=== PATIENT | male | born 1945 ===

== ENCOUNTER 2021-02-16 20:54 | Inpatient (IN) ==
[2021-02-16 22:09] LABS: Hematocrit 37 % (42-52); Hemoglobin 13.1 g/dL (14.0-18.0); Mean Corpuscular HGB Conc 35 g/dL (31-36); Mean Corpuscular Hemoglobin 33 pg (27-31); Mean Corpuscular Volume 93 fL (80-94); Mean Platelet Volume 7.5 fL (7.4-10.4); Platelet Count 341 10^3/uL (150-450); Red Blood Count 4.01 10^6 /uL (4.18-5.48); Red Cell Distribution Width 13 % (10-15); White Blood Count 8.9 10^3/uL (3.5-10.8)
[2021-02-16 22:31] LABS: Albumin 3.3 g/dL (3.2-5.2); Albumin/Globulin Ratio 0.9 (1-3); Calcium 8.4 mg/dL (8.6-10.3); Globulin 3.6 g/dL (2-4); Magnesium 2.4 mg/dL (1.9-2.7); Potassium 3.9 mmol/L (3.5-5.0); Total Bilirubin 0.8 mg/dL (0.2-1.0); Total Protein 6.9 g/dL (6.4-8.9); eGFR CKD-EPI 53.1 (>60)
[2021-02-16 22:50] LABS: ABS Lymphocytes 0.2 10^3/ul (1.0-4.8); ABS Monocytes 0.2 10^3/ul (0-0.8); ABS Neutrophils 8.5 10^3/ul (1.5-7.7); Lymphocyte % 2.7 %; Nucleated Red Blood Cells % 0.1
[2021-02-16] MEDS: Enoxaparin 40 MG/0.4 ML SYR SUBCUT SCH (22:56)
[2021-02-16] MEDS ORDERED: Azithromycin 500 mg/250 ml NS 500 MG/250 ML BAG IVPB ONE (23:08)
[2021-02-16] MEDS ORDERED: Dextrose 50% Syringe 50 ml 25 GM/50 ML SYRINGE IV PUSH PRN (23:10)
[2021-02-17] MEDS ORDERED: Remdesivir 100 mg Vial 200 MG in NS 0.9% 250 ml 210 ML IV ONE (00:21)
[2021-02-17 01:02] LABS: INR 1.21 (0.86-1.15)
[2021-02-17] MEDS: cefTRIAXone 1 gm/50 mL NS BAG 1 GM/50 ML BAG IVPB SCH ×2 (01:02→20:22)
[2021-02-17 01:22] LABS: Albumin 3.1 g/dL (3.2-5.2); Albumin/Globulin Ratio 0.9 (1-3); Calcium 8.4 mg/dL (8.6-10.3); Globulin 3.3 g/dL (2-4); Potassium 3.8 mmol/L (3.5-5.0); Total Bilirubin 0.6 mg/dL (0.2-1.0); Total Protein 6.4 g/dL (6.4-8.9); eGFR CKD-EPI 58.2 (>60)
[2021-02-17 04:52] LABS: ABS Lymphocytes 0.5 10^3/ul (1.0-4.8); ABS Monocytes 0.2 10^3/ul (0-0.8); ABS Neutrophils 7.9 10^3/ul (1.5-7.7); Hematocrit 36 % (42-52); Hemoglobin 12.4 g/dL (14.0-18.0); Lymphocyte % 5.4 %; Mean Corpuscular HGB Conc 35 g/dL (31-36); Mean Corpuscular Hemoglobin 32 pg (27-31); Mean Corpuscular Volume 94 fL (80-94); Mean Platelet Volume 7.8 fL (7.4-10.4); Platelet Count 365 10^3/uL (150-450); Red Blood Count 3.84 10^6 /uL (4.18-5.48); Red Cell Distribution Width 13 % (10-15); White Blood Count 8.6 10^3/uL (3.5-10.8)
[2021-02-17 05:06] LABS: Calcium 7.9 mg/dL (8.6-10.3); eGFR CKD-EPI 66.9 (>60)
[2021-02-17 08:33] LABS: Magnesium 2.3 mg/dL (1.9-2.7)
[2021-02-17] MEDS: Enoxaparin 40 MG/0.4 ML SYR SUBCUT SCH (20:22)
[2021-02-17] MEDS ORDERED: Remdesivir 100 mg Q24H MAINTENANCE DOSING IV SCH (21:00)
[2021-02-18 05:25] LABS: ABS Lymphocytes 1.1 10^3/ul (1.0-4.8); ABS Monocytes 0.6 10^3/ul (0-0.8); ABS Neutrophils 12.8 10^3/ul (1.5-7.7); Hematocrit 38 % (42-52); Lymphocyte % 7.6 %; Mean Corpuscular HGB Conc 34 g/dL (31-36); Mean Corpuscular Hemoglobin 32 pg (27-31); Mean Corpuscular Volume 94 fL (80-94); Mean Platelet Volume 7.7 fL (7.4-10.4); Nucleated Red Blood Cells % 0.1; Platelet Count 355 10^3/uL (150-450); Red Blood Count 4.02 10^6 /uL (4.18-5.48); Red Cell Distribution Width 13 % (10-15); White Blood Count 14.5 10^3/uL (3.5-10.8)
[2021-02-18 05:33] LABS: INR 1.29 (0.86-1.15)
[2021-02-18 05:42] LABS: Albumin 3.1 g/dL (3.2-5.2); Albumin/Globulin Ratio 0.9 (1-3); Calcium 8.4 mg/dL (8.6-10.3); Globulin 3.4 g/dL (2-4); Magnesium 2.2 mg/dL (1.9-2.7); Potassium 3.8 mmol/L (3.5-5.0); Total Bilirubin 0.6 mg/dL (0.2-1.0); Total Protein 6.5 g/dL (6.4-8.9); eGFR CKD-EPI 89.8 (>60)
[2021-02-18] MEDS ORDERED: Potassium Chlor 20 meq TAB.ER PO ONE (07:19)
[2021-02-18] MEDS ORDERED: Furosemide 40 mg/4 ml IV VIAL IV SLOW PU ONE (10:29)
[2021-02-18 14:55] LABS: Ferritin 922.5 ng/mL (24-336)
[2021-02-18] MEDS: cefTRIAXone 1 gm/50 mL NS BAG 1 GM/50 ML BAG IVPB SCH (20:04)
[2021-02-18] MEDS: Enoxaparin 40 MG/0.4 ML SYR SUBCUT SCH (20:10)
[2021-02-19 06:27] LABS: ABS Lymphocytes 0.7 10^3/ul (1.0-4.8); ABS Monocytes 0.4 10^3/ul (0-0.8); Eosinophil % 0.2 %; Hematocrit 41 % (42-52); Hemoglobin 14.2 g/dL (14.0-18.0); Lymphocyte % 6.6 %; Mean Corpuscular HGB Conc 35 g/dL (31-36); Mean Corpuscular Hemoglobin 33 pg (27-31); Mean Corpuscular Volume 94 fL (80-94); Mean Platelet Volume 7.5 fL (7.4-10.4); Platelet Count 248 10^3/uL (150-450); Red Blood Count 4.37 10^6 /uL (4.18-5.48); Red Cell Distribution Width 13 % (10-15); White Blood Count 11.1 10^3/uL (3.5-10.8)
[2021-02-19 06:40] LABS: Albumin 3.3 g/dL (3.2-5.2); Calcium 8.3 mg/dL (8.6-10.3); Globulin 3.3 g/dL (2-4); Potassium 4.1 mmol/L (3.5-5.0); Total Bilirubin 0.8 mg/dL (0.2-1.0); Total Protein 6.6 g/dL (6.4-8.9); eGFR CKD-EPI 90.8 (>60)
[2021-02-19] MEDS ORDERED: Furosemide 40 mg/4 ml IV VIAL IV SLOW PU ONE (11:37)
[2021-02-19] MEDS: cefTRIAXone 1 gm/50 mL NS BAG 1 GM/50 ML BAG IVPB SCH (22:05)
[2021-02-19] MEDS: methylPREDNISolone SOD 40 mg/ml 1 ml VIAL IV SCH (22:05)
[2021-02-19] MEDS: Enoxaparin 40 MG/0.4 ML SYR SUBCUT SCH (22:05)
[2021-02-20 06:14] LABS: ABS Lymphocytes 0.6 10^3/ul (1.0-4.8); ABS Monocytes 0.2 10^3/ul (0-0.8); ABS Neutrophils 11.3 10^3/ul (1.5-7.7); Hematocrit 40 % (42-52); Lymphocyte % 4.6 %; Mean Corpuscular HGB Conc 35 g/dL (31-36); Mean Corpuscular Hemoglobin 32 pg (27-31); Mean Corpuscular Volume 94 fL (80-94); Mean Platelet Volume 7.7 fL (7.4-10.4); Platelet Count 239 10^3/uL (150-450); Red Blood Count 4.32 10^6 /uL (4.18-5.48); Red Cell Distribution Width 13 % (10-15); White Blood Count 12.1 10^3/uL (3.5-10.8)
[2021-02-20 06:43] LABS: Albumin 3.2 g/dL (3.2-5.2); Calcium 8.4 mg/dL (8.6-10.3); Globulin 3.2 g/dL (2-4); Magnesium 2.1 mg/dL (1.9-2.7); Phosphorus 4.3 mg/dL (2.5-5.0); Potassium 4.6 mmol/L (3.5-5.0); Total Bilirubin 0.8 mg/dL (0.2-1.0); Total Protein 6.4 g/dL (6.4-8.9); eGFR CKD-EPI 89.8 (>60)
[2021-02-20] MEDS: methylPREDNISolone SOD 40 mg/ml 1 ml VIAL IV SCH ×2 (09:29→21:19)
[2021-02-20] MEDS: cefTRIAXone 1 gm/50 mL NS BAG 1 GM/50 ML BAG IVPB SCH (21:18)
[2021-02-20] MEDS: Enoxaparin 40 MG/0.4 ML SYR SUBCUT SCH (21:18)
[2021-02-21 05:28] LABS: Hematocrit 43 % (42-52); Hemoglobin 14.7 g/dL (14.0-18.0); Mean Corpuscular HGB Conc 34 g/dL (31-36); Mean Corpuscular Hemoglobin 32 pg (27-31); Mean Corpuscular Volume 93 fL (80-94); Mean Platelet Volume 7.9 fL (7.4-10.4); Platelet Count 296 10^3/uL (150-450); Red Blood Count 4.61 10^6 /uL (4.18-5.48); Red Cell Distribution Width 13 % (10-15); White Blood Count 13.3 10^3/uL (3.5-10.8)
[2021-02-21 05:46] LABS: Albumin 3.2 g/dL (3.2-5.2); Albumin/Globulin Ratio 0.9 (1-3); Calcium 8.5 mg/dL (8.6-10.3); Globulin 3.5 g/dL (2-4); Magnesium 2.2 mg/dL (1.9-2.7); Phosphorus 3.6 mg/dL (2.5-5.0); Potassium 4.7 mmol/L (3.5-5.0); Total Bilirubin 0.8 mg/dL (0.2-1.0); Total Protein 6.7 g/dL (6.4-8.9); eGFR CKD-EPI 88.6 (>60)
[2021-02-21] MEDS: methylPREDNISolone SOD 40 mg/ml 1 ml VIAL IV SCH ×2 (08:44→20:15)
[2021-02-21] MEDS: cefTRIAXone 1 gm/50 mL NS BAG 1 GM/50 ML BAG IVPB SCH (20:14)
[2021-02-21] MEDS: Enoxaparin 40 MG/0.4 ML SYR SUBCUT SCH (20:15)
[2021-02-22 05:00] LABS: Hematocrit 43 % (42-52); Hemoglobin 14.6 g/dL (14.0-18.0); Mean Corpuscular HGB Conc 34 g/dL (31-36); Mean Corpuscular Hemoglobin 32 pg (27-31); Mean Corpuscular Volume 94 fL (80-94); Mean Platelet Volume 7.8 fL (7.4-10.4); Platelet Count 230 10^3/uL (150-450); Red Blood Count 4.52 10^6 /uL (4.18-5.48); Red Cell Distribution Width 13 % (10-15); White Blood Count 11.7 10^3/uL (3.5-10.8)
[2021-02-22 05:09] LABS: Albumin 3.2 g/dL (3.2-5.2); Calcium 8.4 mg/dL (8.6-10.3); Magnesium 2.3 mg/dL (1.9-2.7); Potassium 4.9 mmol/L (3.5-5.0); Total Bilirubin 0.7 mg/dL (0.2-1.0)
[2021-02-22 05:15] LABS: Albumin/Globulin Ratio 0.9 (1-3); Globulin 3.6 g/dL (2-4); Phosphorus 3.3 mg/dL (2.5-5.0); Total Protein 6.8 g/dL (6.4-8.9); eGFR CKD-EPI 91.1 (>60)
[2021-02-22] MEDS: methylPREDNISolone SOD 40 mg/ml 1 ml VIAL IV SCH ×2 (09:16→20:53)
[2021-02-22] MEDS: cefTRIAXone 1 gm/50 mL NS BAG 1 GM/50 ML BAG IVPB SCH (20:55)
[2021-02-22] MEDS: Enoxaparin 40 MG/0.4 ML SYR SUBCUT SCH (20:56)
[2021-02-23 05:41] LABS: ABS Lymphocytes 0.7 10^3/ul (1.0-4.8); ABS Monocytes 0.4 10^3/ul (0-0.8); ABS Neutrophils 9.4 10^3/ul (1.5-7.7); Eosinophil % 0.1 %; Hematocrit 41 % (42-52); Hemoglobin 14.4 g/dL (14.0-18.0); Lymphocyte % 6.6 %; Mean Corpuscular HGB Conc 35 g/dL (31-36); Mean Corpuscular Hemoglobin 33 pg (27-31); Mean Corpuscular Volume 93 fL (80-94); Platelet Count 262 10^3/uL (150-450); Red Blood Count 4.38 10^6 /uL (4.18-5.48); Red Cell Distribution Width 13 % (10-15); White Blood Count 10.5 10^3/uL (3.5-10.8)
[2021-02-23 05:56] LABS: Calcium 8.3 mg/dL (8.6-10.3); Magnesium 2.2 mg/dL (1.9-2.7); Potassium 4.8 mmol/L (3.5-5.0); eGFR CKD-EPI 91.5 (>60)
[2021-02-23] MEDS ORDERED: Senna TAB 8.6 mg TAB PO PRN (08:13)
[2021-02-23] MEDS ORDERED: Furosemide 40 mg/4 ml IV VIAL IV SLOW PU ONE (08:52)
[2021-02-23] MEDS: methylPREDNISolone SOD 40 mg/ml 1 ml VIAL IV SCH ×2 (09:07→20:21)
[2021-02-23] MEDS: Morphine 2 MG/ML SYRINGE IV PRN (10:10)
[2021-02-23] MEDS: Magnesium Hydroxide LIQ 30 ML UDC PO SCH (17:37)
[2021-02-23] MEDS: Polyethylene Glycol 3350 17 GM PACKET PO SCH (20:21)
[2021-02-23] MEDS: Enoxaparin 40 MG/0.4 ML SYR SUBCUT SCH (20:21)
[2021-02-23] MEDS ORDERED: Magnesium Hydroxide LIQ 30 ML UDC PO SCH (21:00)
[2021-02-24 05:02] LABS: Hematocrit 42 % (42-52); Hemoglobin 14.7 g/dL (14.0-18.0); Mean Corpuscular HGB Conc 35 g/dL (31-36); Mean Corpuscular Hemoglobin 33 pg (27-31); Mean Corpuscular Volume 93 fL (80-94); Mean Platelet Volume 8.1 fL (7.4-10.4); Platelet Count 273 10^3/uL (150-450); Red Blood Count 4.52 10^6 /uL (4.18-5.48); Red Cell Distribution Width 13 % (10-15); White Blood Count 10.4 10^3/uL (3.5-10.8)
[2021-02-24 05:19] LABS: Calcium 8.5 mg/dL (8.6-10.3); Magnesium 2.2 mg/dL (1.9-2.7); Phosphorus 2.3 mg/dL (2.5-5.0); Potassium 4.8 mmol/L (3.5-5.0); eGFR CKD-EPI 90.1 (>60)
[2021-02-24] MEDS ORDERED: Morphine 2 MG/ML SYRINGE ONE (07:50)
[2021-02-24] MEDS ORDERED: LORazepam 2 mg VIAL 1 ml ONE (07:57)
[2021-02-24] MEDS ORDERED: Lorazepam PYXIS KEY ONE (07:57)
[2021-02-24] MEDS ORDERED: Lorazepam PYXIS KEY PRN (07:57)
[2021-02-24] MEDS: LORazepam 2 mg VIAL 1 ml IV PUSH ONE ×2 (07:59→08:05)
[2021-02-24] MEDS ORDERED: Furosemide 40 mg/4 ml IV VIAL IV ONE (08:49)
[2021-02-24] MEDS: methylPREDNISolone SOD 40 mg/ml 1 ml VIAL IV SCH ×2 (09:44→21:17)
[2021-02-24] MEDS: Polyethylene Glycol 3350 17 GM PACKET PO SCH ×2 (10:01→21:17)
[2021-02-24] MEDS: Acetylcysteine 600mgCAP(RENAL) PO SCH ×3 (11:20→21:20)
[2021-02-24] MEDS: Magnesium Hydroxide LIQ 30 ML UDC PO SCH ×3 (11:22→21:21)
[2021-02-24] MEDS: Enoxaparin 40 MG/0.4 ML SYR SUBCUT SCH (21:19)
[2021-02-25 04:56] LABS: Hematocrit 40 % (42-52); Hemoglobin 13.9 g/dL (14.0-18.0); Mean Corpuscular HGB Conc 35 g/dL (31-36); Mean Corpuscular Hemoglobin 33 pg (27-31); Mean Corpuscular Volume 94 fL (80-94); Mean Platelet Volume 8.4 fL (7.4-10.4); Platelet Count 274 10^3/uL (150-450); Red Blood Count 4.26 10^6 /uL (4.18-5.48); Red Cell Distribution Width 13 % (10-15); White Blood Count 10.3 10^3/uL (3.5-10.8)
[2021-02-25 05:11] LABS: Calcium 8.2 mg/dL (8.6-10.3); Magnesium 2.3 mg/dL (1.9-2.7); Phosphorus 2.9 mg/dL (2.5-5.0); Potassium 4.7 mmol/L (3.5-5.0); eGFR CKD-EPI 93.7 (>60)
[2021-02-25] MEDS: Polyethylene Glycol 3350 17 GM PACKET PO SCH ×2 (08:33→21:15)
[2021-02-25] MEDS: methylPREDNISolone SOD 40 mg/ml 1 ml VIAL IV SCH ×2 (08:39→21:14)
[2021-02-25] MEDS: Acetylcysteine 600mgCAP(RENAL) PO SCH ×2 (08:39→21:15)
[2021-02-25] MEDS: Magnesium Hydroxide LIQ 30 ML UDC PO SCH ×3 (09:08→21:15)
[2021-02-25] MEDS: Morphine 2 MG/ML SYRINGE IV PRN (16:10)
[2021-02-25] MEDS: Enoxaparin 40 MG/0.4 ML SYR SUBCUT SCH (21:15)
[2021-02-26 05:35] LABS: Calcium 8.2 mg/dL (8.6-10.3); Magnesium 2.4 mg/dL (1.9-2.7); eGFR CKD-EPI 93.3 (>60)
[2021-02-26 05:54] LABS: Hematocrit 42 % (42-52); Hemoglobin 14.5 g/dL (14.0-18.0); Mean Corpuscular HGB Conc 35 g/dL (31-36); Mean Corpuscular Hemoglobin 32 pg (27-31); Mean Corpuscular Volume 93 fL (80-94); Mean Platelet Volume 8.4 fL (7.4-10.4); Platelet Count 281 10^3/uL (150-450); Red Cell Distribution Width 13 % (10-15)
[2021-02-26] MEDS: Magnesium Hydroxide LIQ 30 ML UDC PO SCH ×2 (08:14→22:06)
[2021-02-26] MEDS: methylPREDNISolone SOD 40 mg/ml 1 ml VIAL IV SCH ×2 (08:15→21:55)
[2021-02-26] MEDS: Acetylcysteine 600mgCAP(RENAL) PO SCH ×2 (08:15→21:53)
[2021-02-26] MEDS: Polyethylene Glycol 3350 17 GM PACKET PO SCH ×2 (08:38→22:06)
[2021-02-26] MEDS: Morphine 2 MG/ML SYRINGE IV PRN (08:51)
[2021-02-26] MEDS: CMC: Selenium 200 mcg TAB (NF) PO SCH (13:44)
[2021-02-26] MEDS: Enoxaparin 40 MG/0.4 ML SYR SUBCUT SCH (21:53)
[2021-02-27 04:54] LABS: Calcium 8.1 mg/dL (8.6-10.3); eGFR CKD-EPI 90.1 (>60)
[2021-02-27 05:00] LABS: Potassium 5.2 mmol/L (3.5-5.0)
[2021-02-27] MEDS ORDERED: Furosemide 40 mg/4 ml IV VIAL IV SLOW PU ONE (06:48)
[2021-02-27] MEDS: CMC: Selenium 200 mcg TAB (NF) PO SCH (08:05)
[2021-02-27] MEDS: methylPREDNISolone SOD 40 mg/ml 1 ml VIAL IV SCH ×2 (08:05→21:59)
[2021-02-27] MEDS: Acetylcysteine 600mgCAP(RENAL) PO SCH ×2 (08:05→21:59)
[2021-02-27] MEDS: Magnesium Hydroxide LIQ 30 ML UDC PO SCH ×2 (08:06→21:58)
[2021-02-27] MEDS: Polyethylene Glycol 3350 17 GM PACKET PO SCH ×2 (08:06→22:03)
[2021-02-27] MEDS: Morphine 2 MG/ML SYRINGE IV PRN ×2 (09:02→11:09)
[2021-02-27] MEDS: Enoxaparin 40 MG/0.4 ML SYR SUBCUT SCH (21:58)
[2021-02-28 06:54] LABS: Blood Urea Nitrogen 30 mg/dL (6-24); CO2 Carbon Dioxide 26 mmol/L (22-32); Calcium 8.4 mg/dL (8.6-10.3); Chloride 98 mmol/L (101-111); Glucose 159 mg/dL (70-100); Sodium 131 mmol/L (135-145); eGFR CKD-EPI 94.9 (>60)
[2021-02-28] MEDS: Polyethylene Glycol 3350 17 GM PACKET PO SCH ×2 (08:39→20:48)
[2021-02-28] MEDS: CMC: Selenium 200 mcg TAB (NF) PO SCH (08:40)
[2021-02-28] MEDS: Acetylcysteine 600mgCAP(RENAL) PO SCH ×2 (08:40→20:47)
[2021-02-28] MEDS: Magnesium Hydroxide LIQ 30 ML UDC PO SCH ×2 (08:40→20:48)
[2021-02-28] MEDS: methylPREDNISolone SOD 40 mg/ml 1 ml VIAL IV SCH ×2 (08:40→20:47)
[2021-02-28] MEDS: Morphine 2 MG/ML SYRINGE IV PRN (08:53)
[2021-02-28 09:27] LABS: Anion Gap 7 mmol/L (2-11)
[2021-02-28 10:34] LABS: Magnesium 2.1 mg/dL (1.9-2.7); Potassium Redraw 4.6 mmol/L (3.5-5.0)
[2021-02-28] MEDS: Enoxaparin 40 MG/0.4 ML SYR SUBCUT SCH (20:46)
[2021-03-01 04:43] LABS: Hematocrit 36 % (42-52); Hemoglobin 12.8 g/dL (14.0-18.0); Mean Corpuscular HGB Conc 36 g/dL (31-36); Mean Corpuscular Hemoglobin 33 pg (27-31); Mean Corpuscular Volume 92 fL (80-94); Platelet Count 294 10^3/uL (150-450); Red Cell Distribution Width 13 % (10-15); White Blood Count 10.5 10^3/uL (3.5-10.8)
[2021-03-01 05:02] LABS: Calcium 8.4 mg/dL (8.6-10.3); Potassium 4.8 mmol/L (3.5-5.0); eGFR CKD-EPI 93.3 (>60)
[2021-03-01] MEDS: Polyethylene Glycol 3350 17 GM PACKET PO SCH ×2 (08:05→21:12)
[2021-03-01] MEDS: methylPREDNISolone SOD 40 mg/ml 1 ml VIAL IV SCH ×2 (08:06→21:11)
[2021-03-01] MEDS: Acetylcysteine 600mgCAP(RENAL) PO SCH ×2 (08:10→21:11)
[2021-03-01] MEDS: Magnesium Hydroxide LIQ 30 ML UDC PO SCH ×2 (08:10→21:12)
[2021-03-01] MEDS: CMC: Selenium 200 mcg TAB (NF) PO SCH (08:12)
[2021-03-01] MEDS: Enoxaparin 40 MG/0.4 ML SYR SUBCUT SCH (21:10)
[2021-03-02 05:22] LABS: Hematocrit 37 % (42-52); Hemoglobin 12.7 g/dL (14.0-18.0); Mean Corpuscular HGB Conc 34 g/dL (31-36); Mean Corpuscular Hemoglobin 32 pg (27-31); Mean Corpuscular Volume 94 fL (80-94); Platelet Count 297 10^3/uL (150-450); Red Blood Count 3.94 10^6 /uL (4.18-5.48); Red Cell Distribution Width 13 % (10-15); White Blood Count 11.5 10^3/uL (3.5-10.8)
[2021-03-02 05:44] LABS: Albumin/Globulin Ratio 1.2 (1-3); Calcium 8.1 mg/dL (8.6-10.3); Globulin 2.5 g/dL (2-4); Potassium 4.5 mmol/L (3.5-5.0); Total Bilirubin 0.4 mg/dL (0.2-1.0); Total Protein 5.5 g/dL (6.4-8.9); eGFR CKD-EPI 96.2 (>60)
[2021-03-02] MEDS: Acetylcysteine 600mgCAP(RENAL) PO SCH (08:38)
[2021-03-02] MEDS: methylPREDNISolone SOD 40 mg/ml 1 ml VIAL IV SCH ×2 (08:38→23:35)
[2021-03-02] MEDS: Polyethylene Glycol 3350 17 GM PACKET PO SCH (08:38)
[2021-03-02] MEDS: CMC: Selenium 200 mcg TAB (NF) PO SCH (08:38)
[2021-03-02] MEDS: Magnesium Hydroxide LIQ 30 ML UDC PO SCH (08:39)
[2021-03-02] MEDS: Morphine 2 MG/ML SYRINGE IV PRN (10:50)
[2021-03-02] MEDS: Enoxaparin 40 MG/0.4 ML SYR SUBCUT SCH (23:30)
[2021-03-03] MEDS: Magnesium Hydroxide LIQ 30 ML UDC PO SCH ×3 (00:17→21:12)
[2021-03-03] MEDS: Acetylcysteine 600mgCAP(RENAL) PO SCH ×3 (00:18→21:16)
[2021-03-03] MEDS: Polyethylene Glycol 3350 17 GM PACKET PO SCH ×3 (00:18→21:26)
[2021-03-03 05:08] LABS: Hematocrit 37 % (42-52); Hemoglobin 12.8 g/dL (14.0-18.0); Mean Corpuscular HGB Conc 35 g/dL (31-36); Mean Corpuscular Hemoglobin 32 pg (27-31); Mean Corpuscular Volume 93 fL (80-94); Mean Platelet Volume 7.9 fL (7.4-10.4); Platelet Count 276 10^3/uL (150-450); Red Blood Count 3.98 10^6 /uL (4.18-5.48); Red Cell Distribution Width 13 % (10-15); White Blood Count 9.7 10^3/uL (3.5-10.8)
[2021-03-03 05:26] LABS: Calcium 8.2 mg/dL (8.6-10.3); Magnesium 1.8 mg/dL (1.9-2.7); Potassium 4.6 mmol/L (3.5-5.0); eGFR CKD-EPI 92.6 (>60)
[2021-03-03] MEDS: methylPREDNISolone SOD 40 mg/ml 1 ml VIAL IV SCH ×2 (08:59→21:12)
[2021-03-03] MEDS: CMC: Selenium 200 mcg TAB (NF) PO SCH (11:43)
[2021-03-03] MEDS ORDERED: Albuterol HFA INHALER 8 gm MDI INH PRN (13:36)
[2021-03-03] MEDS: Morphine 2 MG/ML SYRINGE IV PRN (17:48)
[2021-03-03] MEDS: Enoxaparin 40 MG/0.4 ML SYR SUBCUT SCH (21:13)
[2021-03-04 06:29] LABS: Hematocrit 36 % (42-52); Hemoglobin 12.5 g/dL (14.0-18.0); Mean Corpuscular HGB Conc 35 g/dL (31-36); Mean Corpuscular Hemoglobin 32 pg (27-31); Mean Corpuscular Volume 93 fL (80-94); Platelet Count 293 10^3/uL (150-450); Red Blood Count 3.84 10^6 /uL (4.18-5.48); Red Cell Distribution Width 13 % (10-15); White Blood Count 11.4 10^3/uL (3.5-10.8)
[2021-03-04 06:56] LABS: Calcium 8.3 mg/dL (8.6-10.3); Potassium 4.8 mmol/L (3.5-5.0); eGFR CKD-EPI 95.3 (>60)
[2021-03-04] MEDS: Polyethylene Glycol 3350 17 GM PACKET PO SCH ×2 (07:40→20:52)
[2021-03-04 07:50] LABS: ABS Lymphocytes 0.8 10^3/ul (1.0-4.8); ABS Monocytes 0.5 10^3/ul (0-0.8); ABS Neutrophils 10.1 10^3/ul (1.5-7.7); Eosinophil % 0.1 %; Lymphocyte % 6.7 %
[2021-03-04] MEDS: Acetylcysteine 600mgCAP(RENAL) PO SCH ×2 (08:49→20:52)
[2021-03-04] MEDS: CMC: Selenium 200 mcg TAB (NF) PO SCH (08:49)
[2021-03-04] MEDS: methylPREDNISolone SOD 40 mg/ml 1 ml VIAL IV SCH ×2 (08:55→20:50)
[2021-03-04] MEDS: Magnesium Hydroxide LIQ 30 ML UDC PO SCH ×2 (10:17→20:52)
[2021-03-04] MEDS: Enoxaparin 40 MG/0.4 ML SYR SUBCUT SCH (20:52)
[2021-03-05 06:29] LABS: Hematocrit 35 % (42-52); Hemoglobin 12.1 g/dL (14.0-18.0); Mean Corpuscular HGB Conc 35 g/dL (31-36); Mean Corpuscular Hemoglobin 33 pg (27-31); Mean Corpuscular Volume 94 fL (80-94); Mean Platelet Volume 7.8 fL (7.4-10.4); Platelet Count 264 10^3/uL (150-450); Red Blood Count 3.72 10^6 /uL (4.18-5.48); Red Cell Distribution Width 13 % (10-15); White Blood Count 9.8 10^3/uL (3.5-10.8)
[2021-03-05 06:50] LABS: Calcium 8.4 mg/dL (8.6-10.3); Potassium 4.7 mmol/L (3.5-5.0); eGFR CKD-EPI 94.1 (>60)
[2021-03-05] MEDS: methylPREDNISolone SOD 40 mg/ml 1 ml VIAL IV SCH (08:54)
[2021-03-05] MEDS: Polyethylene Glycol 3350 17 GM PACKET PO SCH ×2 (08:54→22:50)
[2021-03-05] MEDS: Magnesium Hydroxide LIQ 30 ML UDC PO SCH ×2 (08:55→22:49)
[2021-03-05] MEDS: CMC: Selenium 200 mcg TAB (NF) PO SCH (09:20)
[2021-03-05] MEDS: Acetylcysteine 600mgCAP(RENAL) PO SCH ×2 (09:20→22:50)
[2021-03-05] MEDS: Saline NASAL SPRAY 0.65% BTL BOTH NARES PRN (09:20)
[2021-03-05] MEDS: Morphine 2 MG/ML SYRINGE IV PRN ×2 (09:43→12:49)
[2021-03-05] MEDS ORDERED: Iohexol 350 (CONTRAST) 500 ML MDV IV ONE (11:00)
[2021-03-05] MEDS ORDERED: methylPREDNISolone SOD 40 mg/ml 1 ml VIAL IV ONE (21:00)
[2021-03-05] MEDS: Enoxaparin 40 MG/0.4 ML SYR SUBCUT SCH (22:49)
[2021-03-06] MEDS: Saline NASAL SPRAY 0.65% BTL BOTH NARES PRN ×2 (02:32→23:00)
[2021-03-06 06:23] LABS: Hematocrit 36 % (42-52); Hemoglobin 12.6 g/dL (14.0-18.0); Mean Corpuscular HGB Conc 35 g/dL (31-36); Mean Corpuscular Hemoglobin 33 pg (27-31); Mean Corpuscular Volume 94 fL (80-94); Mean Platelet Volume 8.3 fL (7.4-10.4); Platelet Count 259 10^3/uL (150-450); Red Blood Count 3.81 10^6 /uL (4.18-5.48); Red Cell Distribution Width 13 % (10-15); White Blood Count 9.4 10^3/uL (3.5-10.8)
[2021-03-06 06:36] LABS: Calcium 8.5 mg/dL (8.6-10.3); Magnesium 2.3 mg/dL (1.9-2.7); Potassium 4.7 mmol/L (3.5-5.0); eGFR CKD-EPI 96.6 (>60)
[2021-03-06 06:41] LABS: ABS Lymphocytes 0.6 10^3/ul (1.0-4.8); ABS Monocytes 0.3 10^3/ul (0-0.8); ABS Neutrophils 8.5 10^3/ul (1.5-7.7); Eosinophil % 0.1 %; Lymphocyte % 6.3 %; Nucleated Red Blood Cells % 0.1
[2021-03-06] MEDS: Magnesium Hydroxide LIQ 30 ML UDC PO SCH ×2 (09:24→22:39)
[2021-03-06] MEDS: Acetylcysteine 600mgCAP(RENAL) PO SCH ×2 (09:39→22:39)
[2021-03-06] MEDS: CMC: Selenium 200 mcg TAB (NF) PO SCH (09:40)
[2021-03-06] MEDS: Polyethylene Glycol 3350 17 GM PACKET PO SCH ×2 (09:57→22:39)
[2021-03-06] MEDS: Enoxaparin 40 MG/0.4 ML SYR SUBCUT SCH (22:38)
[2021-03-07 06:11] LABS: Hematocrit 38 % (42-52); Mean Corpuscular HGB Conc 34 g/dL (31-36); Mean Corpuscular Hemoglobin 33 pg (27-31); Mean Corpuscular Volume 95 fL (80-94); Mean Platelet Volume 7.7 fL (7.4-10.4); Platelet Count 234 10^3/uL (150-450); Red Blood Count 3.99 10^6 /uL (4.18-5.48); Red Cell Distribution Width 13 % (10-15); White Blood Count 8.5 10^3/uL (3.5-10.8)
[2021-03-07 06:16] LABS: ABS Eosinophils 0.1 10^3/ul (0-0.6); ABS Lymphocytes 1.4 10^3/ul (1.0-4.8); ABS Monocytes 0.5 10^3/ul (0-0.8); ABS Neutrophils 6.5 10^3/ul (1.5-7.7); Eosinophil % 0.8 %; Nucleated Red Blood Cells % 0.1
[2021-03-07 06:26] LABS: Blood Urea Nitrogen 22 mg/dL (6-24); CO2 Carbon Dioxide 31 mmol/L (22-32); Calcium 8.5 mg/dL (8.6-10.3); Chloride 100 mmol/L (101-111); Glucose 104 mg/dL (70-100); Sodium 135 mmol/L (135-145); eGFR CKD-EPI 89.8 (>60)
[2021-03-07 06:29] LABS: Anion Gap 4 mmol/L (2-11)
[2021-03-07] MEDS: Acetylcysteine 600mgCAP(RENAL) PO SCH (09:14)
[2021-03-07] MEDS: CMC: Selenium 200 mcg TAB (NF) PO SCH (09:14)
[2021-03-07] MEDS: Polyethylene Glycol 3350 17 GM PACKET PO SCH ×2 (09:15→21:12)
[2021-03-07] MEDS: Magnesium Hydroxide LIQ 30 ML UDC PO SCH ×2 (09:15→21:11)
[2021-03-07] MEDS: Enoxaparin 40 MG/0.4 ML SYR SUBCUT SCH (21:13)
[2021-03-08] MEDS: Saline NASAL SPRAY 0.65% BTL BOTH NARES PRN ×2 (03:11→08:08)
[2021-03-08] MEDS: Fluticasone NASAL SPRAY 50MCG 16 gm SPRAY BTL BOTH NARES SCH (04:34)
[2021-03-08 07:35] LABS: ABS Eosinophils 0.1 10^3/ul (0-0.6); ABS Lymphocytes 1.2 10^3/ul (1.0-4.8); ABS Monocytes 0.5 10^3/ul (0-0.8); ABS Neutrophils 6.6 10^3/ul (1.5-7.7); Hematocrit 38 % (42-52); Hemoglobin 13.2 g/dL (14.0-18.0); Lymphocyte % 13.8 %; Mean Corpuscular HGB Conc 35 g/dL (31-36); Mean Corpuscular Hemoglobin 33 pg (27-31); Mean Corpuscular Volume 94 fL (80-94); Mean Platelet Volume 7.6 fL (7.4-10.4); Platelet Count 229 10^3/uL (150-450); Red Blood Count 4.03 10^6 /uL (4.18-5.48); Red Cell Distribution Width 14 % (10-15); White Blood Count 8.4 10^3/uL (3.5-10.8)
[2021-03-08 07:53] LABS: Calcium 8.6 mg/dL (8.6-10.3); Magnesium 2.1 mg/dL (1.9-2.7); eGFR CKD-EPI 93.7 (>60)
[2021-03-08] MEDS: Polyethylene Glycol 3350 17 GM PACKET PO SCH ×2 (07:58→20:06)
[2021-03-08] MEDS: Magnesium Hydroxide LIQ 30 ML UDC PO SCH ×2 (08:04→20:06)
[2021-03-08] MEDS: CMC: Selenium 200 mcg TAB (NF) PO SCH (08:05)
[2021-03-08] MEDS ORDERED: Saline NASAL SPRAY 0.65% BTL BOTH NARES PRN (09:40)
[2021-03-08] MEDS: Enoxaparin 40 MG/0.4 ML SYR SUBCUT SCH (20:01)
[2021-03-09] MEDS: Polyethylene Glycol 3350 17 GM PACKET PO SCH ×2 (07:32→20:47)
[2021-03-09] MEDS: Magnesium Hydroxide LIQ 30 ML UDC PO SCH ×2 (07:32→20:48)
[2021-03-09] MEDS: CMC: Selenium 200 mcg TAB (NF) PO SCH (07:33)
[2021-03-09] MEDS: Fluticasone NASAL SPRAY 50MCG 16 gm SPRAY BTL BOTH NARES SCH (07:34)
[2021-03-09] MEDS: Enoxaparin 40 MG/0.4 ML SYR SUBCUT SCH (20:55)
[2021-03-10 07:33] LABS: Hematocrit 37 % (42-52); Mean Corpuscular HGB Conc 35 g/dL (31-36); Mean Corpuscular Hemoglobin 33 pg (27-31); Mean Corpuscular Volume 95 fL (80-94); Mean Platelet Volume 7.5 fL (7.4-10.4); Platelet Count 197 10^3/uL (150-450); Red Blood Count 3.93 10^6 /uL (4.18-5.48); Red Cell Distribution Width 14 % (10-15); White Blood Count 7.8 10^3/uL (3.5-10.8)
[2021-03-10 07:49] LABS: Calcium 8.5 mg/dL (8.6-10.3); Magnesium 1.8 mg/dL (1.9-2.7); Potassium 3.9 mmol/L (3.5-5.0); eGFR CKD-EPI 93.3 (>60)
[2021-03-10] MEDS: Polyethylene Glycol 3350 17 GM PACKET PO SCH ×2 (08:38→20:31)
[2021-03-10] MEDS: Magnesium Hydroxide LIQ 30 ML UDC PO SCH ×2 (08:39→20:30)
[2021-03-10] MEDS: CMC: Selenium 200 mcg TAB (NF) PO SCH (08:39)
[2021-03-10] MEDS: Fluticasone NASAL SPRAY 50MCG 16 gm SPRAY BTL BOTH NARES SCH (08:40)
[2021-03-10] MEDS ORDERED: Magnesium Sulfate IV 3 GM in NS 0.9% 100 ml BAG 100 ML IVPB ONE (10:18)
[2021-03-10] MEDS: Enoxaparin 40 MG/0.4 ML SYR SUBCUT SCH (20:30)
[2021-03-11] MEDS: CMC: Selenium 200 mcg TAB (NF) PO SCH (10:11)
[2021-03-11] MEDS: Fluticasone NASAL SPRAY 50MCG 16 gm SPRAY BTL BOTH NARES SCH (10:15)
[2021-03-11] MEDS: Magnesium Hydroxide LIQ 30 ML UDC PO SCH (12:24)
[2021-03-11] MEDS: Polyethylene Glycol 3350 17 GM PACKET PO SCH (12:24)
[2021-03-11 15:22] VITALS: BP 143/92
== END 2021-03-11 17:40 | disposition home health service (06) | DRG 177 ==
LOC: SUATTDRO 21:00 → ICU 21:00 → MEDTELE 03-02 14:38 → MED 03-05 01:54
PROVIDERS: ADMIT Internal Medicine; ATTEND Internal Medicine